=== PATIENT | male | born 1945 | race Caucasian/White ===

== ENCOUNTER → 2018-08-24 | Outpatient (CLI) | payer OTHER ==
[~2018-08-24] MED LIST: ASPI-1197 PO; CLOP75TA14 PO; FURO20TA6 PO; METO-391 PO; SIMV20TA6 PO
== END | disposition home or self-care (01) ==
LOC: SHCH 08:21
PROVIDERS: ATTEND Internal Medicine Cardiovascular Disease
DX: I51.89 Other ill-defined heart diseases (principal); I51.7 Cardiomegaly
CPT/HCPCS: 93306

== ENCOUNTER → 2018-12-14 | Outpatient (CLI) | payer OTHER ==
[~2018-12-14] MED LIST changes: +GLIP5TAB11 PO; +METF-444 PO; +SPIR25TA PO
== END | disposition home or self-care (01) ==
LOC: SHCH 07:53
PROVIDERS: ATTEND Internal Medicine Cardiovascular Disease
DX: I35.8 Other nonrheumatic aortic valve disorders (principal); I11.9 Hypertensive heart disease without heart failure; I25.5 Ischemic cardiomyopathy
CPT/HCPCS: 93306

== ENCOUNTER → 2018-12-21 | Outpatient (CLI) | payer OTHER ==
[~2018-12-21] MED LIST changes: +ALBUTEROL SULFATE 0.083% 2.5 MG/3 ML INH IH ONE
== END | disposition home or self-care (01) ==
LOC: RESP 10:28
PROVIDERS: ATTEND Internal Medicine Cardiovascular Disease
DX: R06.02 Shortness of breath (principal)
CPT/HCPCS: 94060; 94727; 94729

== ENCOUNTER → 2019-09-03 | Outpatient (CLI) | payer OTHER ==
[~2019-09-03] MED LIST changes: -ALBUTEROL SULFATE 0.083% 2.5 MG/3 ML INH IH ONE; +SIMV-43 PO; -SIMV20TA6 PO
== END | disposition home or self-care (01) ==
LOC: SHCH 07:43
PROVIDERS: ATTEND Internal Medicine Cardiovascular Disease
DX: I25.10 Atherosclerotic heart disease of native coronary artery without angina pectoris (principal); I11.9 Hypertensive heart disease without heart failure
CPT/HCPCS: 93306

== ENCOUNTER 2019-10-03 10:20 | Observation (INO) | payer OTHER ==
[2019-10-02 08:59] LABS: BASOPHILS % (AUTO) 0.5 % (0.0-5.0); EOSINOPHILS % (AUTO) 4.4 % (0.0-8.0); HEMATOCRIT 48.7 % (42-54); LYMPHOCYTES % (AUTO) 8.8 % (21.0-51.0); MEAN CORPUSCULAR HEMOGLOBIN 31.5 pg (27.0-33.0); MEAN CORPUSCULAR HGB CONC 33.7 g/dL (32.0-36.0); MEAN CORPUSCULAR VOLUME 93.6 fL (79-99); MONOCYTES % (AUTO) 8.3 % (3.0-13.0); PLATELET COUNT (AUTO) 179 K/uL (130-400); RED BLOOD CELL COUNT(AUTO) 5.21 MIL/uL (4.50-6.20); RED CELL DISTRIBUTION WIDTH 13.3 % (11.0-15.5)
[2019-10-02 09:05] VITALS: BP 91/55
[2019-10-02 09:14] LABS: INR 0.99 (0.85-1.15); PARTIAL THROMBOPLASTIN TIME 26.6 SEC (26.3-35.5); PROTHROMBIN TIME 10.4 SEC (9.6-11.6)
[2019-10-02 09:15] LABS: CREATININE 1.6 mg/dL (0.5-1.5); POTASSIUM 4.9 mmol/L (3.5-5.1)
--- NOTE | 2019-10-02 14:15 | NUR ---
RE: ABNORMAL LABS REPORTED ABNORMAL LABS BUN 38, CREAT 1.6 AND WBC 11.0 TO ANDREA BECKHAM. NO NEW ORDERS RECEIVED.
[2019-10-03] VITALS (10 sets, daily range): BP systolic 99–154; BP diastolic 52–62
[~2019-10-03] VITALS: Ht 175.3 cm; Wt 100.4 kg
[~2019-10-03 10:20] MED LIST changes: +CEFAZOLIN SODIUM 1 GM VIAL IVP SCH; -CLOP75TA14 PO; +CLOP75TA32 PO; +LOSA25TA41 PO
[2019-10-03] MEDS ORDERED: SODIUM CHLORIDE 0.9% 1000ML 1,000 ML IV ONE (12:17)
[2019-10-03] MEDS ORDERED: LIDOCAINE HCL 1% MDV 50ML VIAL ONE (13:44)
[2019-10-03] MEDS ORDERED: MIDAZOLAM HCL 1 MG/ML 2ML VIAL ONE ×3 (13:44→14:54)
[2019-10-03] MEDS ORDERED: CEFAZOLIN SODIUM 1 GM VIAL ONE (13:44)
[2019-10-03] MEDS ORDERED: MEPERIDINE-PF 25 MG/ML SYG ONE ×3 (13:44→14:54)
[2019-10-03] MEDS ORDERED: BUPIVACAINE/PF 0.25% 30ML VIAL IJ ONE (13:44)
[2019-10-03] MEDS ORDERED: IOHEXOL-350 50ML VIAL IV ONE (14:36)
[2019-10-03] MEDS ORDERED: OCTYL 2-CYANOACRYLATE 1 EACH TP ONE (15:05)
[2019-10-03] MEDS ORDERED: DEXTROSE 50%-WATER 50 ML DISP.SYRIN IV PRN (15:45)
[2019-10-03] MEDS ORDERED: ACETAMINOPHEN-CODEINE 300/30MG TAB PO PRN ×2 (15:45)
[2019-10-03] MEDS ORDERED: ONDANSETRON HCL 4 MG/2 ML VIAL IV PRN (15:45)
[2019-10-03] MEDS: INSULIN HUMULIN R 100 UNIT/ML 3ML SQ SCH ×2 (16:30→21:00)
[2019-10-03] MEDS: METFORMIN HCL 500 MG TABLET PO SCH (16:49)
[2019-10-03] MEDS ORDERED: GLIPIZIDE 5 MG TABLET PO SCH (21:00)
[2019-10-03] MEDS ORDERED: ALPRAZOLAM 0.5 MG TABLET PO ONE (21:00)
[2019-10-03] MEDS: LOSARTAN POTASSIUM 12.5 MG PO SCH (21:00)
[2019-10-03] MEDS: METOPROLOL TARTRATE 25 MG TAB PO SCH (21:22)
[2019-10-03] MEDS: SPIRONOLACTONE 25 MG TAB PO SCH (21:22)
[2019-10-04 00:08] VITALS: BP 125/64
[2019-10-04 04:17] VITALS: BP_SYST 123; BP_SYST 70; BP_DIAS 70
[2019-10-04 04:57] LABS: MEAN CORPUSCULAR HEMOGLOBIN 31.8 pg (27.0-33.0); MEAN CORPUSCULAR HGB CONC 34.2 g/dL (32.0-36.0); PLATELET COUNT (AUTO) 184 K/uL (130-400); RED BLOOD CELL COUNT(AUTO) 4.84 MIL/uL (4.50-6.20); RED CELL DISTRIBUTION WIDTH 13.5 % (11.0-15.5); WHITE BLOOD COUNT (AUTO) 12.2 K/uL (4.8-10.8)
[2019-10-04 05:11] LABS: CREATININE 1.5 mg/dL (0.5-1.5); POTASSIUM 4.1 mmol/L (3.5-5.1)
[2019-10-04] MEDS: CEFAZOLIN SODIUM 1 GM VIAL IVP SCH ×2 (05:35→14:20)
[2019-10-04] MEDS: INSULIN HUMULIN R 100 UNIT/ML 3ML SQ SCH ×2 (06:27→11:24)
[2019-10-04 07:42] VITALS: BP 120/66
[2019-10-04] MEDS: METFORMIN HCL 500 MG TABLET PO SCH (08:18)
[2019-10-04] MEDS: SPIRONOLACTONE 25 MG TAB PO SCH (08:18)
[2019-10-04] MEDS: METOPROLOL TARTRATE 25 MG TAB PO SCH (08:18)
[2019-10-04] MEDS ORDERED: ASPIRIN 81MG TAB.CHEW PO SCH (09:00)
[2019-10-04] MEDS ORDERED: FUROSEMIDE 20 MG TABLET PO SCH (09:00)
[2019-10-04 11:39] VITALS: BP 106/72
--- NOTE | 2019-10-04 12:39 | NUR ---
1003 had pt sign ALEXANDER Letter. Faxed to [phone] and placed in chart under consent tab
--- NOTE | 2019-10-04 14:40 | NUR ---
HL REMOVED, CATHETER INTACT. DISCHARGE INSTRUCTIONS WELL LEFT ARM RESTRICTIONS/PRECAUTIONS GIVEN TO PT. AND PT.'S SPOUSE AT BEDSIDE, VERBALIZED MUTUAL UNDERSTANDING.
--- NOTE | 2019-10-04 14:50 | NUR ---
DISCHARGED HOME VIA W/C WITH BELONGINGS AND ARM SLING IN PLACE; ACCOMPANIED BY KRYSTEN GARNICA.
[2019-10-05] MEDS ORDERED: SIMVASTATIN 20 MG TABLET PO SCH (09:00)
[2019-10-05] MEDS ORDERED: CLOPIDOGREL BISULFATE 75 MG TAB PO SCH (09:00)
== END 2019-10-04 14:50 | disposition home or self-care (01) ==
LOC: DAH 10:20 → DAHIP 10:21 → DAH 10:21 → 2AH 16:12
PROVIDERS: ADMIT Internal Medicine Pulmonary Disease; ATTEND Internal Medicine Pulmonary Disease
DX: I42.8 Other cardiomyopathies (principal); I49.5 Sick sinus syndrome; I50.9 Heart failure, unspecified; E78.5 Hyperlipidemia, unspecified; J44.9 Chronic obstructive pulmonary disease, unspecified; E11.22 Type 2 diabetes mellitus with diabetic chronic kidney disease; N18.9 Chronic kidney disease, unspecified; E66.9 Obesity, unspecified; Z90.89 Acquired absence of other organs; Z95.5 Presence of coronary angioplasty implant and graft; Z95.810 Presence of automatic (implantable) cardiac defibrillator; Z79.82 Long term (current) use of aspirin; Z79.84 Long term (current) use of oral hypoglycemic drugs; Z79.02 Long term (current) use of antithrombotics/antiplatelets; Z79.899 Other long term (current) drug therapy; Z68.32 Body mass index [BMI] 32.0-32.9, adult
CPT/HCPCS: 33249; 36415 ×2; 71046; 80048 ×2; 82948 ×4; 85025; 85027; 85610; 85730; 93005; 96374; 96376; A4215; A4216; A4221; A4222; A4223 ×3; A4606; A4663; C1721; C1894; C1895 ×2; G0378 ×23; J0690 ×3; J2175 ×3; J2250 ×3; J3490 ×2; J7030; Q9967; 99156; 99157

== ENCOUNTER 2022-09-29 10:52 | Emergency (ER) | payer OTHER ==
[~2022-09-29] VITALS: Ht 177.8 cm; Wt 100.2 kg
[~2022-09-29 10:52] MED LIST changes: -CEFAZOLIN SODIUM 1 GM VIAL IVP SCH
[2022-09-29 12:39] LABS: BASOPHILS % (AUTO) 0.3 % (0.0-5.0); EOSINOPHILS % (AUTO) 0.6 % (0.0-8.0); HEMATOCRIT 48.9 % (42-54); LYMPHOCYTES % (AUTO) 10.1 % (21.0-51.0); MEAN CORPUSCULAR HEMOGLOBIN 31.4 pg (27.0-33.0); MEAN CORPUSCULAR HGB CONC 33.9 g/dL (32.0-36.0); MEAN CORPUSCULAR VOLUME 92.6 fL (79-99); NEUTROPHILS % (AUTO) 69.4 % (40.0-77.0); PLATELET COUNT (AUTO) 139 K/uL (130-400); RED BLOOD CELL COUNT(AUTO) 5.28 MIL/uL (4.50-6.20); RED CELL DISTRIBUTION WIDTH 13.9 % (11.0-15.5); WHITE BLOOD COUNT (AUTO) 7.7 K/uL (4.8-10.8)
[2022-09-29 13:01] LABS: B-TYPE NATRIURETIC PEPTIDE 63 pg/mL (0-100)
[2022-09-29 13:08] LABS: ALBUMIN 3.6 g/dL (3.5-5.0); CREATININE 1.8 mg/dL (0.5-1.5); POTASSIUM 3.9 mmol/L (3.5-5.1)
[2022-09-29 13:22] LABS: TOTAL PROTEIN, SERUM 7.1 g/dL (6.0-8.3)
[2022-09-29] MEDS ORDERED: 0.9%NACL 1000ML 1,000 ML IV ONE (14:00)
[2022-09-29] MEDS ORDERED: DEXTROSE 50%-WATER 50 ML DISP.SYRIN IV ONE (14:05)
[2022-09-29 15:11] VITALS: BP 136/78
== END 2022-09-29 15:06 | disposition home or self-care (01) ==
LOC: EDH 10:52
DX: E11.22 Type 2 diabetes mellitus with diabetic chronic kidney disease (principal); N18.30 Chronic kidney disease, stage 3 unspecified; I50.42 Chronic combined systolic (congestive) and diastolic (congestive) heart failure; J44.9 Chronic obstructive pulmonary disease, unspecified; I50.9 Heart failure, unspecified; Z79.82 Long term (current) use of aspirin; Z79.84 Long term (current) use of oral hypoglycemic drugs; Z95.5 Presence of coronary angioplasty implant and graft; Z95.810 Presence of automatic (implantable) cardiac defibrillator; Z79.899 Other long term (current) drug therapy
CPT/HCPCS: 99285; 96374; 71045; 84484; 80053; 83880; 85025; 82948 ×2; 36415; 93005; J7030; J7070

== ENCOUNTER → 2022-10-13 | Outpatient (CLI) | payer OTHER | END | disposition home or self-care (01) | LOC: SHCH 10:43 | PROVIDERS: ATTEND Internal Medicine Cardiovascular Disease | DX: I08.0 Rheumatic disorders of both mitral and aortic valves (principal); I25.10 Atherosclerotic heart disease of native coronary artery without angina pectoris; E11.9 Type 2 diabetes mellitus without complications; Z95.0 Presence of cardiac pacemaker | CPT/HCPCS: 93306 ==

== ENCOUNTER → 2022-10-14 | Outpatient (CLI) | payer OTHER ==
[2022-10-14 12:30] LABS: BASOPHILS % (AUTO) 0.6 % (0.0-5.0); EOSINOPHILS % (AUTO) 4.1 % (0.0-8.0); HEMATOCRIT 51.6 % (42-54); LYMPHOCYTES % (AUTO) 11.9 % (21.0-51.0); MEAN CORPUSCULAR HEMOGLOBIN 31.1 pg (27.0-33.0); MEAN CORPUSCULAR HGB CONC 33.5 g/dL (32.0-36.0); MEAN CORPUSCULAR VOLUME 92.8 fL (79-99); MONOCYTES % (AUTO) 9.6 % (3.0-13.0); NEUTROPHILS % (AUTO) 72.9 % (40.0-77.0); PLATELET COUNT (AUTO) 248 K/uL (130-400); RED BLOOD CELL COUNT(AUTO) 5.56 MIL/uL (4.50-6.20); RED CELL DISTRIBUTION WIDTH 13.2 % (11.0-15.5); WHITE BLOOD COUNT (AUTO) 12.1 K/uL (4.8-10.8)
[2022-10-14 12:39] LABS: HEMOGLOBIN A1C 7.5 % (4.0-6.0)
[2022-10-14 12:52] LABS: ALBUMIN 3.7 g/dL (3.5-5.0); CREATININE 1.7 mg/dL (0.5-1.5); POTASSIUM 4.8 mmol/L (3.5-5.1); T4 (THYROXINE) 6.3 ug/dL (4.7-13.3); THYROID STIMULATING HORMONE 2.43 uIU/mL (0.36-3.74); TOTAL PROTEIN, SERUM 7.3 g/dL (6.0-8.3)
[2022-10-14 13:26] LABS: B-TYPE NATRIURETIC PEPTIDE 114 pg/mL (0-100)
== END | disposition home or self-care (01) ==
LOC: LAB 10:00
PROVIDERS: ATTEND Internal Medicine Cardiovascular Disease
DX: I25.5 Ischemic cardiomyopathy (principal); I10 Essential (primary) hypertension; Z79.899 Other long term (current) drug therapy
CPT/HCPCS: 36415; 80053; 80061; 83036; 83880; 84436; 84443; 84479; 85025

== ENCOUNTER 2023-01-20 11:41 | Inpatient (IN) | payer OTHER ==
[~2023-01-20] VITALS: Ht 157.5 cm; Wt 103.4 kg
[2023-01-20] MEDS ORDERED: FAMOTIDINE 20MG VIAL IV ONE (12:00)
[2023-01-20] MEDS ORDERED: 0.9%NACL 1000ML 1,000 ML IV ONE (12:00)
[2023-01-20 12:38] LABS: BASOPHILS % (AUTO) 0.2 % (0.0-5.0); LYMPHOCYTES % (AUTO) 2.1 % (21.0-51.0); MEAN CORPUSCULAR HGB CONC 33.5 g/dL (32.0-36.0); MEAN CORPUSCULAR VOLUME 92.6 fL (79-99); MONOCYTES % (AUTO) 6.2 % (3.0-13.0); NEUTROPHILS % (AUTO) 90.5 % (40.0-77.0); PLATELET COUNT (AUTO) 215 K/uL (130-400); RED BLOOD CELL COUNT(AUTO) 5.83 MIL/uL (4.50-6.20); RED CELL DISTRIBUTION WIDTH 13.2 % (11.0-15.5); WHITE BLOOD COUNT (AUTO) 20.9 K/uL (4.8-10.8)
[2023-01-20 13:23] LABS: ALBUMIN 3.7 g/dL (3.5-5.0); CREATININE 2.5 mg/dL (0.5-1.5); POTASSIUM 5.3 mmol/L (3.5-5.1)
[2023-01-20 13:25] LABS: TOTAL PROTEIN, SERUM 6.9 g/dL (6.0-8.3)
[2023-01-20] MEDS ORDERED: ZOSYN 3.375GM+NS 50ML 50 ML IVPB SCH (13:30)
[2023-01-20 13:40] LABS: INR 0.98 (0.85-1.15); PROTHROMBIN TIME 10.7 SEC (9.6-11.6)
[2023-01-20 13:41] LABS: PARTIAL THROMBOPLASTIN TIME 27.2 SEC (26.3-35.5)
[2023-01-20] MEDS ORDERED: INSULIN HUMULIN R 100 UNIT/ML 3ML IV ONE (14:00)
[2023-01-20 14:17] LABS: ABG BASE EXCESS -6.7 mmol/L (-2.0-3.0); ABG HCO3 19.5 mmol/L (21.0-28.0); ABG OXYGEN SATURATION 91.4 % (95.0-99.0); ABG PCO2 41 mmHg (35-48)
[2023-01-20] MEDS ORDERED: ONDANSETRON 4MG INJ IV PRN (14:30)
[2023-01-20] MEDS ORDERED: VANCOMYCIN PROTOCOL PER PHARMACY IV PRN (14:30)
[2023-01-20] MEDS ORDERED: LIDOCAINE HCL-MPF 1% 2ML VIAL IV PRN (14:30)
[2023-01-20] MEDS ORDERED: POTASSIUM CHLORIDE 20MEQ/100ML 100 ML IV PRN (14:30)
[2023-01-20] MEDS ORDERED: GLUCAGON 1MG KIT 1 MG ML IM PRN (14:30)
[2023-01-20] MEDS ORDERED: ACETAMINOPHEN 325 MG TAB PO PRN ×2 (14:30)
[2023-01-20] MEDS ORDERED: POTASSIUM CHLORIDE 10% ELIXIR 20 MEQ/15 ML UDCUP PO PRN (14:30)
[2023-01-20] MEDS ORDERED: DEXTROSE 50%-WATER 50 ML DISP.SYRIN IV PRN (14:30)
[2023-01-20] MEDS ORDERED: LACTULOSE 20 GM/30 ML UDCUP PO PRN (14:30)
[2023-01-20] MEDS ORDERED: MAG/ALUM/SIMETH 30 ML UDCUP PO PRN (14:30)
[2023-01-20] MEDS ORDERED: HYDROMORPHONE 1 MG INJ IV PRN (14:30)
[2023-01-20] MEDS ORDERED: MAGNESIUM 2GM PREMIX 50ML 50 ML IV PRN (14:30)
[2023-01-20] MEDS ORDERED: GUAIFENESIN-DM 200/20 MG 10 ML PO PRN (14:30)
[2023-01-20] MEDS ORDERED: DIPHENHYDRAMINE HCL 25 MG CAPSULE PO PRN (14:30)
[2023-01-20] MEDS ORDERED: NITROGLYCERIN 0.4 MG SL TAB SL PRN (14:30)
[2023-01-20] MEDS ORDERED: HYDROCODONE/ACETAMINOPHEN 5/325 MG TAB PO PRN ×2 (14:30)
[2023-01-20] MEDS: 0.9%NACL 1000ML 1,000 ML IV SCH ×2 (14:45→23:48)
[2023-01-20] MEDS: CEFEPIME HCL 2 GM VIAL IVP SCH ×2 (15:18→23:47)
[2023-01-20] MEDS: INSULIN HUMULIN R 100 UNIT/ML 3ML SQ SCH ×2 (17:46→21:00)
[2023-01-20] MEDS: MIDODRINE HCL 5 MG TABLET PO SCH (21:00)
[2023-01-20] MEDS: FAMOTIDINE 20MG TAB PO SCH (21:00)
[2023-01-20] MEDS: HEPARIN 5,000 UNIT VIAL SQ SCH (23:46)
[2023-01-20] MEDS: FAMOTIDINE 20MG VIAL IV SCH (23:47)
[2023-01-20] MEDS: INSULIN GLARGINE 100 UNITS/ML 10 ML VIAL SQ SCH (23:49)
[2023-01-21] MEDS: CEFEPIME HCL 2 GM VIAL IVP SCH ×3 (06:05→22:56)
[2023-01-21] MEDS: 0.9%NACL 1000ML 1,000 ML IV SCH ×3 (06:05→23:04)
[2023-01-21] MEDS: INSULIN GLARGINE 100 UNITS/ML 10 ML VIAL SQ SCH ×2 (07:30→20:16)
[2023-01-21] MEDS: INSULIN HUMULIN R 100 UNIT/ML 3ML SQ SCH ×3 (07:30→20:12)
[2023-01-21 07:37] LABS: BASOPHILS % (AUTO) 0.3 % (0.0-5.0); EOSINOPHILS % (AUTO) 0.4 % (0.0-8.0); HEMATOCRIT 48.4 % (42-54); LYMPHOCYTES % (AUTO) 8.8 % (21.0-51.0); MEAN CORPUSCULAR HEMOGLOBIN 30.8 pg (27.0-33.0); MEAN CORPUSCULAR HGB CONC 32.9 g/dL (32.0-36.0); MEAN CORPUSCULAR VOLUME 93.8 fL (79-99); MONOCYTES % (AUTO) 8.2 % (3.0-13.0); NEUTROPHILS % (AUTO) 81.7 % (40.0-77.0); PLATELET COUNT (AUTO) 165 K/uL (130-400); RED BLOOD CELL COUNT(AUTO) 5.16 MIL/uL (4.50-6.20); RED CELL DISTRIBUTION WIDTH 13.3 % (11.0-15.5); WHITE BLOOD COUNT (AUTO) 15.7 K/uL (4.8-10.8)
[2023-01-21 07:50] LABS: PROTHROMBIN TIME 10.9 SEC (9.6-11.6)
[2023-01-21 07:51] LABS: PARTIAL THROMBOPLASTIN TIME 29.6 SEC (26.3-35.5)
[2023-01-21 07:52] LABS: % IRON SATURATION 13.7 % (30-44)
[2023-01-21 08:00] LABS: ALBUMIN 3.2 g/dL (3.5-5.0); POTASSIUM 3.8 mmol/L (3.5-5.1); THYROID STIMULATING HORMONE 1.07 uIU/mL (0.36-3.74); TOTAL PROTEIN, SERUM 6.1 g/dL (6.0-8.3)
[2023-01-21] MEDS: FAMOTIDINE 20MG VIAL IV SCH (08:53)
[2023-01-21] MEDS: MIDODRINE HCL 5 MG TABLET PO SCH ×3 (09:00→20:18)
[2023-01-21] MEDS: HEPARIN 5,000 UNIT VIAL SQ SCH ×3 (10:07→20:15)
[2023-01-21] MEDS ORDERED: HALOPERIDOL INJ 5 MG/ML VIAL IV PRN (11:00)
[2023-01-21 11:55] LABS: APPEARANCE,URINE CLEAR (CLEAR); BILIRUBIN,URINE NEGATIVE (NEGATIVE); COLOR,URINE YELLOW (YELLOW); GLUCOSE, URINE (UA) TRACE mg/dL (NEGATIVE); KETONES,URINE 5 mg/dL (NEGATIVE); LEUKOCYTE ESTERASE ,URINE NEGATIVE Leu/uL (NEGATIVE); NITRATE,URINE NEGATIVE (NEGATIVE); OCCULT BLOOD,URINE NEGATIVE (NEGATIVE); PH,URINE 5.5 (5.0-8.0); PROTEIN,URINE 30 mg/dL (NEGATIVE); UROBILINOGEN,URINE 0.2 mg/dL (0.2-1.0)
[2023-01-21 11:59] LABS: AMPHET/METH SCREEN,URINE NEGATIVE (NEGATIVE); BARBITURATE SCREEN, URINE NEGATIVE (NEGATIVE); BENZODIAZEPINES SCREEN,URINE NEGATIVE (NEGATIVE); CANNABINOID SCREEN,URINE NEGATIVE (NEGATIVE); COCAINE SCREEN,URINE NEGATIVE (NEGATIVE); OPIATE SCREEN,URINE NEGATIVE (NEGATIVE); PHENCYCLIDINE SCREEN,URINE NEGATIVE (NEGATIVE)
[2023-01-21 12:10] LABS: MUCUS,URINE RARE LPF (None Seen); RBC,URINE 0-1 /HPF (0-1); SQUAMOUS EPITHELIAL CELL,UR RARE /HPF (0-2)
[2023-01-21] MEDS: HALOPERIDOL INJ 5 MG/ML VIAL IV PRN ×2 (14:04→20:18)
[2023-01-21] MEDS: FAMOTIDINE 20MG TAB PO SCH ×2 (18:29→20:18)
[2023-01-21 19:00] VITALS: BP 128/68
[2023-01-21] MEDS ORDERED: METO-408 PO (19:58)
[2023-01-21] MEDS: DiphenhydrAMINE HCL 50 MG/ML VIAL IV PRN (20:17)
[2023-01-21] MEDS ORDERED: IRON SUCROSE COMPLEX 300 MG in 0.9% NACL 250ML 250 ML IV SCH (21:00)
[2023-01-21] MEDS: METRONIDAZOLE 500MG/100ML BAG 100 ML IVPB SCH (22:55)
[2023-01-22 00:04] VITALS: BP 144/98
[2023-01-22 04:13] VITALS: BP 131/76
[2023-01-22] MEDS: MIDODRINE HCL 5 MG TABLET PO SCH ×3 (05:00→21:00)
[2023-01-22] MEDS: CEFEPIME HCL 2 GM VIAL IVP SCH ×3 (05:14→22:31)
[2023-01-22] MEDS: METRONIDAZOLE 500MG/100ML BAG 100 ML IVPB SCH ×3 (05:14→21:27)
[2023-01-22] MEDS: INSULIN GLARGINE 100 UNITS/ML 10 ML VIAL SQ SCH ×2 (05:36→21:00)
[2023-01-22] MEDS: INSULIN HUMULIN R 100 UNIT/ML 3ML SQ SCH ×4 (05:36→21:00)
[2023-01-22 05:58] LABS: BASOPHILS % (AUTO) 0.5 % (0.0-5.0); EOSINOPHILS % (AUTO) 0.9 % (0.0-8.0); HEMATOCRIT 46.2 % (42-54); LYMPHOCYTES % (AUTO) 8.8 % (21.0-51.0); MEAN CORPUSCULAR HEMOGLOBIN 31.1 pg (27.0-33.0); MEAN CORPUSCULAR HGB CONC 33.1 g/dL (32.0-36.0); MEAN CORPUSCULAR VOLUME 93.9 fL (79-99); MONOCYTES % (AUTO) 10.7 % (3.0-13.0); NEUTROPHILS % (AUTO) 78.3 % (40.0-77.0); PLATELET COUNT (AUTO) 148 K/uL (130-400); RED BLOOD CELL COUNT(AUTO) 4.92 MIL/uL (4.50-6.20); RED CELL DISTRIBUTION WIDTH 13.3 % (11.0-15.5); WHITE BLOOD COUNT (AUTO) 11.5 K/uL (4.8-10.8)
[2023-01-22 06:13] LABS: CREATININE 1.4 mg/dL (0.5-1.5); POTASSIUM 4.4 mmol/L (3.5-5.1); TOTAL PROTEIN, SERUM 5.9 g/dL (6.0-8.3)
[2023-01-22 08:00] VITALS: BP 178/63
[2023-01-22] MEDS: HEPARIN 5,000 UNIT VIAL SQ SCH ×3 (09:40→21:27)
[2023-01-22] MEDS: SIMVASTATIN 20 MG TABLET PO SCH (09:43)
[2023-01-22] MEDS: FAMOTIDINE 20MG TAB PO SCH ×2 (09:43→21:28)
[2023-01-22 10:31] LABS: HEMOGLOBIN A1C 8.3 % (4.0-6.0)
[2023-01-22] MEDS: 0.9%NACL 1000ML 1,000 ML IV SCH (13:13)
[2023-01-22] MEDS ORDERED: METO-408 PO (15:18)
[2023-01-22] MEDS ORDERED: GUAI400T94 PO (15:18)
[2023-01-22] MEDS ORDERED: CLOP75TA32 PO (15:18)
[2023-01-22] MEDS ORDERED: FURO20TA4 PO (15:18)
[2023-01-22] MEDS ORDERED: CHOL2000 PO (15:18)
[2023-01-22] MEDS ORDERED: AEC81 PO (15:18)
[2023-01-22] MEDS ORDERED: MIDO10TA PO (15:18)
[2023-01-22] MEDS ORDERED: GLIP2.5T2 PO (15:18)
[2023-01-22 16:00] VITALS: BP 138/73
[2023-01-22 20:17] VITALS: BP 145/67
[2023-01-23 00:29] VITALS: BP 138/89
[2023-01-23 03:54] VITALS: BP 136/72
[2023-01-23] MEDS: MIDODRINE HCL 5 MG TABLET PO SCH (04:25)
[2023-01-23] MEDS: METRONIDAZOLE 500MG/100ML BAG 100 ML IVPB SCH ×3 (05:04→21:31)
[2023-01-23] MEDS: INSULIN HUMULIN R 100 UNIT/ML 3ML SQ SCH ×4 (06:07→21:00)
[2023-01-23] MEDS: CEFEPIME HCL 2 GM VIAL IVP SCH ×3 (06:12→22:26)
[2023-01-23] MEDS: INSULIN GLARGINE 100 UNITS/ML 10 ML VIAL SQ SCH ×2 (06:13→21:31)
[2023-01-23 06:19] LABS: BASOPHILS % (AUTO) 0.4 % (0.0-5.0); EOSINOPHILS % (AUTO) 2.3 % (0.0-8.0); HEMATOCRIT 44.6 % (42-54); LYMPHOCYTES % (AUTO) 9.9 % (21.0-51.0); MEAN CORPUSCULAR HGB CONC 33.2 g/dL (32.0-36.0); MEAN CORPUSCULAR VOLUME 93.3 fL (79-99); MONOCYTES % (AUTO) 10.8 % (3.0-13.0); PLATELET COUNT (AUTO) 119 K/uL (130-400); RED BLOOD CELL COUNT(AUTO) 4.78 MIL/uL (4.50-6.20); WHITE BLOOD COUNT (AUTO) 10.2 K/uL (4.8-10.8)
[2023-01-23 06:35] LABS: CREATININE 1.3 mg/dL (0.5-1.5); POTASSIUM 3.8 mmol/L (3.5-5.1); TOTAL PROTEIN, SERUM 5.8 g/dL (6.0-8.3)
[2023-01-23] MEDS ORDERED: METOCLOPRAMIDE 10 MG/2 ML VIAL IVP SCH (07:30)
[2023-01-23 08:00] VITALS: BP 138/83
[2023-01-23] MEDS: METOPROLOL SUCCINATE 25 MG TAB.SR.24H PO SCH (10:20)
[2023-01-23] MEDS: ASPIRIN 81 MG EC TAB PO SCH (10:20)
[2023-01-23] MEDS: FAMOTIDINE 20MG TAB PO SCH ×2 (10:20→21:30)
[2023-01-23] MEDS: CLOPIDOGREL 75MG TAB PO SCH (10:21)
[2023-01-23] MEDS: FUROSEMIDE 20 MG TABLET PO SCH (10:22)
[2023-01-23 11:54] VITALS: BP 139/86
[2023-01-23 15:47] VITALS: BP 146/78
[2023-01-23] MEDS: KCL 20 MEQ ERTAB PO PRN ×2 (17:10→19:48)
[2023-01-23 20:23] VITALS: BP 142/78
[2023-01-24] VITALS: BP 145/73
[2023-01-24] MEDS: HALOPERIDOL INJ 5 MG/ML VIAL IV PRN (04:47)
[2023-01-24 04:56] VITALS: BP 138/69
[2023-01-24] MEDS: METRONIDAZOLE 500MG/100ML BAG 100 ML IVPB SCH ×3 (05:15→20:49)
[2023-01-24] MEDS: CEFEPIME HCL 2 GM VIAL IVP SCH ×3 (06:08→20:49)
[2023-01-24] MEDS: INSULIN HUMULIN R 100 UNIT/ML 3ML SQ SCH ×4 (06:35→20:50)
[2023-01-24] MEDS: INSULIN GLARGINE 100 UNITS/ML 10 ML VIAL SQ SCH ×2 (06:35→20:50)
[2023-01-24 08:00] VITALS: BP 139/71
[2023-01-24] MEDS: HOME MEDICATION 1 EACH PO SCH (09:00)
[2023-01-24] MEDS: ASPIRIN 81 MG EC TAB PO SCH (11:01)
[2023-01-24] MEDS: TAMSULOSIN HCL 0.4 MG CAP.ER.24H PO SCH (11:01)
[2023-01-24] MEDS: FAMOTIDINE 20MG TAB PO SCH ×2 (11:01→20:51)
[2023-01-24] MEDS: CLOPIDOGREL 75MG TAB PO SCH (11:02)
[2023-01-24] MEDS: FUROSEMIDE 20 MG TABLET PO SCH (11:04)
[2023-01-24] MEDS: SIMVASTATIN 20 MG TABLET PO SCH (11:05)
[2023-01-24 12:00] VITALS: BP 147/77
[2023-01-24] MEDS: METOPROLOL SUCCINATE 25 MG TAB.SR.24H PO SCH (12:48)
[2023-01-24] MEDS ORDERED: AMLODIPINE 5 MG TAB PO ONE (14:00)
[2023-01-24 16:00] VITALS: BP 126/74
[2023-01-24 20:10] VITALS: BP 130/74
[2023-01-24] MEDS: TRAZODONE HCL 50 MG TAB PO SCH (20:51)
[2023-01-25] VITALS (7 sets, daily range): BP systolic 118–170; BP diastolic 54–76
[2023-01-25] MEDS: CEFEPIME HCL 2 GM VIAL IVP SCH ×3 (04:43→22:21)
[2023-01-25 05:11] LABS: BASOPHILS % (AUTO) 0.5 % (0.0-5.0); EOSINOPHILS % (AUTO) 4.5 % (0.0-8.0); HEMATOCRIT 45.9 % (42-54); LYMPHOCYTES % (AUTO) 11.7 % (21.0-51.0); MEAN CORPUSCULAR HEMOGLOBIN 31.1 pg (27.0-33.0); MEAN CORPUSCULAR HGB CONC 33.6 g/dL (32.0-36.0); MEAN CORPUSCULAR VOLUME 92.7 fL (79-99); MONOCYTES % (AUTO) 11.6 % (3.0-13.0); NEUTROPHILS % (AUTO) 70.7 % (40.0-77.0); PLATELET COUNT (AUTO) 157 K/uL (130-400); RED BLOOD CELL COUNT(AUTO) 4.95 MIL/uL (4.50-6.20); RED CELL DISTRIBUTION WIDTH 12.9 % (11.0-15.5); WHITE BLOOD COUNT (AUTO) 8.3 K/uL (4.8-10.8)
[2023-01-25] MEDS: INSULIN HUMULIN R 100 UNIT/ML 3ML SQ SCH ×4 (05:12→20:30)
[2023-01-25 05:21] LABS: ALBUMIN 3.2 g/dL (3.5-5.0); CREATININE 1.5 mg/dL (0.5-1.5); POTASSIUM 3.9 mmol/L (3.5-5.1); TOTAL PROTEIN, SERUM 6.1 g/dL (6.0-8.3)
[2023-01-25] MEDS: METRONIDAZOLE 500MG/100ML BAG 100 ML IVPB SCH ×3 (05:37→21:22)
[2023-01-25] MEDS: INSULIN GLARGINE 100 UNITS/ML 10 ML VIAL SQ SCH ×2 (05:38→20:39)
[2023-01-25] MEDS: HOME MEDICATION 1 EACH PO SCH (09:00)
[2023-01-25] MEDS: FUROSEMIDE 20 MG TABLET PO SCH (10:39)
[2023-01-25] MEDS: FAMOTIDINE 20MG TAB PO SCH ×2 (10:40→20:41)
[2023-01-25] MEDS: AMLODIPINE 5 MG TAB PO SCH (10:40)
[2023-01-25] MEDS: METOPROLOL SUCCINATE 25 MG TAB.SR.24H PO SCH (10:40)
[2023-01-25] MEDS: TAMSULOSIN HCL 0.4 MG CAP.ER.24H PO SCH (10:40)
[2023-01-25] MEDS: ASPIRIN 81 MG EC TAB PO SCH (10:40)
[2023-01-25] MEDS: CLOPIDOGREL 75MG TAB PO SCH (10:41)
[2023-01-25] MEDS: TRAZODONE HCL 50 MG TAB PO SCH (20:41)
[2023-01-25] MEDS: HALOPERIDOL INJ 5 MG/ML VIAL IV PRN (22:28)
[2023-01-25] MEDS ORDERED: TRAZODONE HCL 50 MG TAB PO ONE (23:00)
[2023-01-25] MEDS: DiphenhydrAMINE HCL 50 MG/ML VIAL IV PRN (23:31)
[2023-01-26] MEDS: HALOPERIDOL INJ 5 MG/ML VIAL IV PRN (02:30)
[2023-01-26] MEDS: METRONIDAZOLE 500MG/100ML BAG 100 ML IVPB SCH (04:39)
[2023-01-26] MEDS: CEFEPIME HCL 2 GM VIAL IVP SCH (05:47)
[2023-01-26] MEDS: INSULIN HUMULIN R 100 UNIT/ML 3ML SQ SCH ×2 (05:48→11:30)
[2023-01-26] MEDS: INSULIN GLARGINE 100 UNITS/ML 10 ML VIAL SQ SCH (05:48)
[2023-01-26 06:28] VITALS: BP 111/52
[2023-01-26 08:00] VITALS: BP 110/67
[2023-01-26] MEDS: HOME MEDICATION 1 EACH PO SCH (09:00)
[2023-01-26] MEDS: CLOPIDOGREL 75MG TAB PO SCH (11:26)
[2023-01-26] MEDS: FAMOTIDINE 20MG TAB PO SCH (11:26)
[2023-01-26] MEDS: ASPIRIN 81 MG EC TAB PO SCH (11:26)
[2023-01-26] MEDS: METOPROLOL SUCCINATE 25 MG TAB.SR.24H PO SCH (11:27)
[2023-01-26] MEDS: FUROSEMIDE 20 MG TABLET PO SCH (11:27)
[2023-01-26] MEDS: TAMSULOSIN HCL 0.4 MG CAP.ER.24H PO SCH (11:27)
[2023-01-26] MEDS: AMLODIPINE 5 MG TAB PO SCH (11:27)
[2023-01-26] MEDS: SIMVASTATIN 20 MG TABLET PO SCH (11:27)
[2023-01-26 12:00] VITALS: BP 136/57
== END 2023-01-26 13:25 | DRG 871 ==
LOC: EDH 11:41 → EDHIP 14:01 → 3AH 01-21 19:00
PROVIDERS: ADMIT Internal Medicine; ATTEND Internal Medicine
DX: A41.9 Sepsis, unspecified organism (principal); E11.10 Type 2 diabetes mellitus with ketoacidosis without coma; G93.41 Metabolic encephalopathy; N17.9 Acute kidney failure, unspecified; I13.0 Hypertensive heart and chronic kidney disease with heart failure and stage 1 through stage 4 chronic kidney disease, or unspecified chronic kidney disease; I50.20 Unspecified systolic (congestive) heart failure; Z68.41 Body mass index [BMI] 40.0-44.9, adult; N39.0 Urinary tract infection, site not specified; Z20.822 Contact with and (suspected) exposure to COVID-19; I95.9 Hypotension, unspecified; K52.9 Noninfective gastroenteritis and colitis, unspecified; E11.22 Type 2 diabetes mellitus with diabetic chronic kidney disease; E11.51 Type 2 diabetes mellitus with diabetic peripheral angiopathy without gangrene; E78.5 Hyperlipidemia, unspecified; J44.9 Chronic obstructive pulmonary disease, unspecified; I25.10 Atherosclerotic heart disease of native coronary artery without angina pectoris; R79.89 Other specified abnormal findings of blood chemistry; I25.5 Ischemic cardiomyopathy; E86.0 Dehydration; E03.9 Hypothyroidism, unspecified; D50.9 Iron deficiency anemia, unspecified; E11.65 Type 2 diabetes mellitus with hyperglycemia; G47.00 Insomnia, unspecified; N18.31 Chronic kidney disease, stage 3a; E66.9 Obesity, unspecified; Z95.5 Presence of coronary angioplasty implant and graft; Z90.49 Acquired absence of other specified parts of digestive tract; Z87.891 Personal history of nicotine dependence
CPT/HCPCS: 36415; 36600; 70450; 71045; 71046; 74176; 80053; 80305; 81001; 82010; 82150; 82803; 82948; 83036; 83540; 83550; 83605; 83690; 83735; 83880; 84100; 84443; 84484; 85025; 85610; 85730; 87040; 93005; 93306; 93356; 97039; G0378; J0692; J1170; J1200; J1630; J1644; J1756; J1815; J2543; J2765; J3490; J7030; J7050; J7070; Q0161

== ENCOUNTER → 2023-04-26 | Outpatient (CLI) | payer OTHER ==
[~2023-04-26] MED LIST changes: +AEC81 PO; -ASPI-1197 PO; +CHOL2000 PO; +FURO20TA4 PO; -FURO20TA6 PO; -GLIP5TAB11 PO; +GUAI600T50 PO; -LOSA25TA41 PO; -METF-444 PO; -METO-391 PO; +MIDO5TAB4 PO; -SPIR25TA PO
== END | disposition home or self-care (01) ==
LOC: WHH 10:05
PROVIDERS: ATTEND Nurse Practitioner Family
DX: L89.610 Pressure ulcer of right heel, unstageable (principal); E11.42 Type 2 diabetes mellitus with diabetic polyneuropathy; I11.0 Hypertensive heart disease with heart failure; I50.20 Unspecified systolic (congestive) heart failure; J44.9 Chronic obstructive pulmonary disease, unspecified; E78.5 Hyperlipidemia, unspecified; I48.91 Unspecified atrial fibrillation; Z87.891 Personal history of nicotine dependence; Z79.899 Other long term (current) drug therapy
CPT/HCPCS: G0463

== ENCOUNTER → 2023-12-21 | Outpatient (CLI) | payer OTHER ==
[2023-12-21 13:55] LABS: ALBUMIN 3.7 g/dL (3.5-5.0); BILIRUBIN,TOTAL 0.6 mg/dL (0.2-1.0); CREATININE 1.7 mg/dL (0.5-1.5); MAGNESIUM 2.2 mg/dL (1.80-2.40); POTASSIUM 4.3 mmol/L (3.5-5.1); TOTAL PROTEIN, SERUM 7.3 g/dL (6.0-8.3)
== END | disposition home or self-care (01) ==
LOC: LAB 10:49
PROVIDERS: ATTEND Internal Medicine Cardiovascular Disease
DX: I50.32 Chronic diastolic (congestive) heart failure (principal); R60.9 Edema, unspecified
CPT/HCPCS: 36415; 80053; 83735; 83880

== ENCOUNTER 2024-06-26 11:45 | Inpatient (IN) | payer OTHER ==
[~2024-06-26] VITALS: Ht 180.3 cm; Wt 97.4 kg
[2024-06-26 12:33] LABS: BASOPHILS # (AUTO) 0.07 K/uL (0.00-0.20); BASOPHILS % (AUTO) 0.4 % (0.0-5.0); EOSINOPHILS # (AUTO) 0.29 K/uL (0.00-0.70); EOSINOPHILS % (AUTO) 1.8 % (0.0-8.0); HEMATOCRIT 49.5 % (42-54); IMMATURE GRANULOCYTE ABSOLUTE 0.09 K/uL (0-1); LYMPHOCYTES # (AUTO) 0.8 K/uL (1.0-4.8); LYMPHOCYTES % (AUTO) 4.9 % (21.0-51.0); MEAN CORPUSCULAR HEMOGLOBIN 31.1 pg (27.0-33.0); MEAN CORPUSCULAR HGB CONC 33.9 g/dL (32.0-36.0); MEAN CORPUSCULAR VOLUME 91.5 fL (79-99); MONOCYTES # (AUTO) 1.3 K/uL (0.1-1.0); MONOCYTES % (AUTO) 8.1 % (3.0-13.0); NEUTROPHILS # (AUTO) 13.5 K/uL (1.8-7.7); NEUTROPHILS % (AUTO) 84.2 % (40.0-77.0); PLATELET COUNT (AUTO) 208 K/uL (130-400); RED BLOOD CELL COUNT(AUTO) 5.41 MIL/uL (4.50-6.20); RED CELL DISTRIBUTION WIDTH 12.9 % (11.0-15.5)
[2024-06-26 12:37] LABS: SARS-CoV-2, RNA, NAAT NEGATIVE SARS CoV-2 (NEGATIVE)
[2024-06-26 12:40] LABS: INFLUENZA TYPE A Negative For Type A (NEGATIVE); INFLUENZA TYPE B Negative For Type B (NEGATIVE)
[2024-06-26 12:43] LABS: CREATININE 2.2 mg/dL (0.5-1.3); POTASSIUM 4.6 mmol/L (3.5-5.1)
[2024-06-26 12:49] LABS: ALBUMIN 3.3 g/dL (3.5-5.0); MAGNESIUM 2.1 mg/dL (1.80-2.40); TOTAL PROTEIN, SERUM 6.9 g/dL (6.0-8.3)
[2024-06-26 13:29] LABS: B-TYPE NATRIURETIC PEPTIDE 189 pg/mL (0-100)
[2024-06-26 14:20] LABS: APPEARANCE,URINE CLOUDY (CLEAR); BILIRUBIN,URINE NEGATIVE (NEGATIVE); COLOR,URINE YELLOW (YELLOW); GLUCOSE, URINE (UA) NEGATIVE (NEGATIVE); KETONES,URINE NEGATIVE (NEGATIVE); LEUKOCYTE ESTERASE ,URINE NEGATIVE Leu/uL (NEGATIVE); NITRATE,URINE NEGATIVE (NEGATIVE); PH,URINE 5.5 (5.0-8.0); PROTEIN,URINE 100 mg/dL (NEGATIVE); UROBILINOGEN,URINE 0.2 mg/dL (0.2-1.0)
[2024-06-26 14:22] LABS: ADD UA MICROSCOPIC YES
[2024-06-26 14:24] LABS: HYALINE CASTS, URINE 0-1 /LPF (0-1 /LPF); MUCUS,URINE RARE LPF (None Seen); SQUAMOUS EPITHELIAL CELL,UR RARE /HPF (0-2)
[2024-06-26] MEDS ORDERED: MEMA10TA21 PO (14:46)
[2024-06-26] MEDS ORDERED: LORA10TA7 PO (14:46)
[2024-06-26] MEDS ORDERED: RIVA2.5T PO (14:46)
[2024-06-26] MEDS ORDERED: FURO40TA5 PO (14:46)
[2024-06-26] MEDS ORDERED: TRAZ-185 PO (14:46)
[2024-06-26] MEDS ORDERED: METO-408 PO (14:46)
[2024-06-26] MEDS ORDERED: DONE10TA43 PO (14:46)
[2024-06-26] MEDS ORDERED: INSLAN SQ (14:47)
[2024-06-26] MEDS: ALBUTEROL 0.083% 2.5 MG/3 ML INH IH ONE (14:51)
[2024-06-26] MEDS: AZITHROMYCIN 500MG+NS 250ML 250 ML IVPB SCH (14:52)
[2024-06-26] MEDS: cefTRIAXone 1G VIAL IVPB ONE (14:52)
[2024-06-26 14:54] VITALS: PULSE 92; RESP 18
[2024-06-26] MEDS ORDERED: guaiFENesin SUGAR-FREE 100 MG/5 ML UDCUP PO PRN (16:00)
[2024-06-26] MEDS ORDERED: doCUSate SODIUM 100 MG CAP PO PRN (16:00)
[2024-06-26] MEDS ORDERED: ONDANSETRON 4MG INJ IV PRN (16:00)
[2024-06-26] MEDS ORDERED: POTASSIUM CHLORIDE 10% ELIXIR 20 MEQ/15 ML UDCUP PO PRN (16:00)
[2024-06-26] MEDS ORDERED: polyETHYLene GLYCol 3350 17 GM POWD.PACK PO PRN (16:00)
[2024-06-26] MEDS ORDERED: DiphenhydrAMINE HCL 50 MG/ML VIAL IV PRN (16:00)
[2024-06-26] MEDS ORDERED: NITROGLYCERIN 0.4 MG SL TAB SL PRN (16:00)
[2024-06-26] MEDS ORDERED: acetaMINOPHEN 325 MG TAB PO PRN (16:00)
[2024-06-26] MEDS ORDERED: DiphenhydrAMINE HCL 25 MG CAPSULE PO PRN (16:00)
[2024-06-26] MEDS ORDERED: LACTULOSE 20 GM/30 ML UDCUP PO PRN (16:00)
[2024-06-26] MEDS ORDERED: POTASSIUM CHLORIDE 20MEQ/100ML 100 ML IV PRN ×2 (16:00)
[2024-06-26] MEDS: INSULIN humuLIN R 100 UNIT/ML 3ML SQ SCH (16:37)
[2024-06-26 16:42] LABS: ABG BASE EXCESS -2.8 mmol/L (-2.0-3.0); ABG HCO3 21.8 mmol/L (21.0-28.0); ABG OXYGEN SATURATION 94.5 % (94.0-98.0); ABG PCO2 38 mmHg (35-48); ABG PH 7.379 (7.350-7.450); PO2, ARTERIAL BG 72.9 mmHg (83.0-108.0); VENT MODE, BG RA (ROOM AIR)
[2024-06-26] MEDS: RIVAROXABAN 2.5 MG TABLET PO SCH (18:51)
[2024-06-26 18:57] VITALS: PULSE 91; RESP 18; O2SAT 95
[2024-06-26] MEDS: IpraTROPium/alBUTERol SULFATE 3 ML SOLUTION IH SCH (18:57)
[2024-06-26] MEDS: SODIUM CHLORIDE 3% FOR INHALATION 4 ML/AMP VIAL.NEB IH ONE (19:23)
[2024-06-26] MEDS: FAMOTIDINE 20MG TAB PO SCH (20:29)
[2024-06-26] MEDS: INSULIN GLARgine 100 UNITS/ML 10 ML VIAL SQ SCH (20:31)
[2024-06-26 21:50] VITALS: BP 154/97; PULSE 68; RESP 20; TEMP 98.8
[2024-06-26 22:16] VITALS: O2SAT 98
[2024-06-26 23:30] VITALS: BP 127/70; PULSE 86; RESP 19; TEMP 98.4
[2024-06-27] VITALS (13 sets, daily range): BP systolic 110–170; BP diastolic 54–90; PULSE 76–102; RESP 17–20; TEMP 97.7–98.6; O2SAT 95–100
[2024-06-27 04:43] LABS: ALBUMIN 3.1 g/dL (3.5-5.0); BILIRUBIN,TOTAL 0.7 mg/dL (0.2-1.0); CREATININE 2.7 mg/dL (0.5-1.3); TOTAL PROTEIN, SERUM 6.5 g/dL (6.0-8.3)
[2024-06-27] MEDS: BUDESONIDE 0.5 MG/2 ML INH IH SCH (06:25)
[2024-06-27] MEDS: LORATAdine 10 mg 10 MG TABLET PO SCH (08:18)
[2024-06-27] MEDS: MEMANtine HCL 5 MG TABLET PO SCH (08:18)
[2024-06-27] MEDS: metOPROLol sucCINATE 25 MG TAB.SR.24H PO SCH (08:18)
[2024-06-27] MEDS: CLOPIDOGREL 75MG TAB PO SCH (08:18)
[2024-06-27] MEDS: CEFTRIAXONE 2GM VIAL IVPB SCH (08:20)
[2024-06-27] MEDS ORDERED: NON-FORMULARY MEDICATION 1 EACH (Memantine HCl 10 MG) PO SCH (09:00)
[2024-06-27] MEDS: AZITHROMYCIN 500MG+NS 250ML 250 ML IV SCH (09:44)
[2024-06-27] MEDS: SODIUM CHLORIDE 3% FOR INHALATION 4 ML/AMP VIAL.NEB IH ONE (10:39)
[2024-06-27] MEDS ORDERED: PHARMACY COMMUNICATION MISC SCH (17:00)
[2024-06-27] MEDS ORDERED: trAZOdone HCL 50 MG TAB PO PRN (17:30)
[2024-06-27] MEDS: furoSEMIDE 40MG VIAL IV SCH (17:54)
[2024-06-27] MEDS: doNEPEZil HCL 5 MG TAB PO SCH (19:55)
[2024-06-27] MEDS: PHARMACY COMMUNICATION MISC SCH (20:01)
[2024-06-27] MEDS ORDERED: BUDESONIDE 0.5 MG/2 ML INH IH SCH (21:00)
[2024-06-27] MEDS: acetaMINOPHEN 325 MG TAB PO PRN (21:43)
[2024-06-27] MEDS: hydrALAZine 25MG TABLET PO PRN (23:29)
[2024-06-28] VITALS (11 sets, daily range): BP systolic 100–175; BP diastolic 45–95; PULSE 72–86; RESP 17–18; TEMP 97.2–98.1; O2SAT 96–97
[2024-06-28 05:11] LABS: ALBUMIN 3.1 g/dL (3.5-5.0); BASOPHILS # (AUTO) 0.05 K/uL (0.00-0.20); BASOPHILS % (AUTO) 0.5 % (0.0-5.0); BILIRUBIN,TOTAL 0.6 mg/dL (0.2-1.0); CREATININE 1.9 mg/dL (0.5-1.3); EOSINOPHILS # (AUTO) 0.56 K/uL (0.00-0.70); EOSINOPHILS % (AUTO) 5.5 % (0.0-8.0); HEMATOCRIT 45.7 % (42-54); IMMATURE GRANULOCYTE ABSOLUTE 0.06 K/uL (0-1); LYMPHOCYTES # (AUTO) 1.5 K/uL (1.0-4.8); MEAN CORPUSCULAR HEMOGLOBIN 31.6 pg (27.0-33.0); MEAN CORPUSCULAR HGB CONC 34.1 g/dL (32.0-36.0); MEAN CORPUSCULAR VOLUME 92.7 fL (79-99); MONOCYTES # (AUTO) 1.1 K/uL (0.1-1.0); MONOCYTES % (AUTO) 10.8 % (3.0-13.0); NEUTROPHILS # (AUTO) 6.8 K/uL (1.8-7.7); NEUTROPHILS % (AUTO) 67.6 % (40.0-77.0); PLATELET COUNT (AUTO) 153 K/uL (130-400); POTASSIUM 3.7 mmol/L (3.5-5.1); RED BLOOD CELL COUNT(AUTO) 4.93 MIL/uL (4.50-6.20); RED CELL DISTRIBUTION WIDTH 12.9 % (11.0-15.5); TOTAL PROTEIN, SERUM 6.5 g/dL (6.0-8.3); WHITE BLOOD COUNT (AUTO) 10.1 K/uL (4.8-10.8)
[2024-06-28 06:03] LABS: B-TYPE NATRIURETIC PEPTIDE 323 pg/mL (0-100)
[2024-06-28] MEDS: KCL 20 MEQ ERTAB PO PRN (06:08)
[2024-06-28] MEDS: miDODRine HCL 5 MG TABLET PO SCH (10:17)
[2024-06-29] VITALS (13 sets, daily range): BP systolic 109–159; BP diastolic 60–78; PULSE 67–100; RESP 17–20; TEMP 97.6–98.9; O2SAT 96–98
[2024-06-29] MEDS: simVASTatin 20 MG TABLET PO SCH (09:52)
[2024-06-29 11:35] LABS: CREATININE 1.8 mg/dL (0.5-1.3)
[2024-06-30] VITALS (12 sets, daily range): BP systolic 123–151; BP diastolic 69–78; PULSE 68–102; RESP 18–20; TEMP 97.4–98.8; O2SAT 93–97
[2024-06-30 05:14] LABS: BASOPHILS # (AUTO) 0.06 K/uL (0.00-0.20); BASOPHILS % (AUTO) 0.6 % (0.0-5.0); EOSINOPHILS # (AUTO) 0.65 K/uL (0.00-0.70); EOSINOPHILS % (AUTO) 6.5 % (0.0-8.0); HEMATOCRIT 45.4 % (42-54); IMMATURE GRANULOCYTE ABSOLUTE 0.07 K/uL (0-1); LYMPHOCYTES # (AUTO) 1.3 K/uL (1.0-4.8); LYMPHOCYTES % (AUTO) 13.1 % (21.0-51.0); MEAN CORPUSCULAR HEMOGLOBIN 31.8 pg (27.0-33.0); MEAN CORPUSCULAR HGB CONC 33.9 g/dL (32.0-36.0); MEAN CORPUSCULAR VOLUME 93.6 fL (79-99); MONOCYTES % (AUTO) 10.4 % (3.0-13.0); NEUTROPHILS # (AUTO) 6.9 K/uL (1.8-7.7); NEUTROPHILS % (AUTO) 68.7 % (40.0-77.0); PLATELET COUNT (AUTO) 168 K/uL (130-400); RED BLOOD CELL COUNT(AUTO) 4.85 MIL/uL (4.50-6.20)
[2024-06-30 05:50] LABS: BILIRUBIN,TOTAL 0.5 mg/dL (0.2-1.0); CREATININE 2.2 mg/dL (0.5-1.3); MAGNESIUM 1.7 mg/dL (1.80-2.40); POTASSIUM 4.2 mmol/L (3.5-5.1); TOTAL PROTEIN, SERUM 6.5 g/dL (6.0-8.3)
[2024-06-30 05:53] LABS: B-TYPE NATRIURETIC PEPTIDE 78 pg/mL (0-100)
[2024-06-30] MEDS: MAGNESIUM 2GM PREMIX 50ML 50 ML IV PRN (06:32)
[2024-06-30] MEDS: furoSEMIDE 40 MG TABLET PO SCH (15:01)
[2024-07-01] VITALS (7 sets, daily range): BP systolic 131–146; BP diastolic 56–79; PULSE 74–94; RESP 18–20; TEMP 97.9–98.7; O2SAT 98
== END 2024-07-01 14:15 | DRG 871 ==
LOC: EDH 11:45 → EDHIP 15:47 → 4CH 21:43
PROVIDERS: ADMIT Internal Medicine Critical Care Medicine; ATTEND Internal Medicine Critical Care Medicine
DX: A41.9 Sepsis, unspecified organism (principal); I50.41 Acute combined systolic (congestive) and diastolic (congestive) heart failure; J15.8 Pneumonia due to other specified bacteria; J44.0 Chronic obstructive pulmonary disease with (acute) lower respiratory infection; N17.9 Acute kidney failure, unspecified; I13.0 Hypertensive heart and chronic kidney disease with heart failure and stage 1 through stage 4 chronic kidney disease, or unspecified chronic kidney disease; N18.4 Chronic kidney disease, stage 4 (severe); E11.65 Type 2 diabetes mellitus with hyperglycemia; E03.9 Hypothyroidism, unspecified; E11.22 Type 2 diabetes mellitus with diabetic chronic kidney disease; E11.51 Type 2 diabetes mellitus with diabetic peripheral angiopathy without gangrene; E78.5 Hyperlipidemia, unspecified; E88.09 Other disorders of plasma-protein metabolism, not elsewhere classified; Z20.822 Contact with and (suspected) exposure to COVID-19; F03.90 Unspecified dementia, unspecified severity, without behavioral disturbance, psychotic disturbance, mood disturbance, and anxiety; I25.10 Atherosclerotic heart disease of native coronary artery without angina pectoris; I25.5 Ischemic cardiomyopathy; Z79.4 Long term (current) use of insulin; Z82.49 Family history of ischemic heart disease and other diseases of the circulatory system; Z83.3 Family history of diabetes mellitus; Z87.891 Personal history of nicotine dependence; Z95.1 Presence of aortocoronary bypass graft; Z79.899 Other long term (current) drug therapy; Z95.810 Presence of automatic (implantable) cardiac defibrillator
CPT/HCPCS: 36415; 36600; 71045; 76770; 80048; 80053; 81001; 82803; 82948; 83605; 83735; 83880; 84145; 84484; 85025; 87040; 87071; 87205; 87635; 87641; 87804; 87880; 92610; 93005; 94640; 94664; G0378; J0456; J0696; J1815; J1940; J3475

== ENCOUNTER → 2024-08-11 | Outpatient (CLI) | payer OTHER ==
[~2024-08-11] MED LIST changes: -AEC81 PO; -CHOL2000 PO; +DONE10TA43 PO; -FURO20TA4 PO; +FURO40TA5 PO; -GUAI600T50 PO; +INSLAN SQ; +IOHEXOL 350 MG/ML 100ML INFUS..BTL IV ONE; +IOHEXOL-350 75 ML VIAL IV ONE; +LORA10TA7 PO; +MEMA10TA21 PO; +METO-408 PO; +RIVA2.5T PO; +TRAZ-185 PO
== END | disposition home or self-care (01) ==
LOC: RAH 08:05
PROVIDERS: ATTEND Internal Medicine
DX: K80.20 Calculus of gallbladder without cholecystitis without obstruction (principal); R74.8 Abnormal levels of other serum enzymes; R91.1 Solitary pulmonary nodule; J84.10 Pulmonary fibrosis, unspecified; I25.10 Atherosclerotic heart disease of native coronary artery without angina pectoris; M47.815 Spondylosis without myelopathy or radiculopathy, thoracolumbar region
CPT/HCPCS: 71270; 76700; Q9967

== ENCOUNTER → 2024-08-30 | Outpatient (CLI) | payer OTHER ==
[~2024-08-30] MED LIST changes: -IOHEXOL 350 MG/ML 100ML INFUS..BTL IV ONE; -IOHEXOL-350 75 ML VIAL IV ONE
== END | disposition home or self-care (01) ==
LOC: SHCH 15:08
PROVIDERS: ATTEND Internal Medicine Cardiovascular Disease
DX: I25.5 Ischemic cardiomyopathy (principal)
CPT/HCPCS: 93306

== ENCOUNTER 2025-02-14 12:36 | Emergency (ER) | payer OTHER ==
[~2025-02-14] VITALS: Ht 180.3 cm; Wt 104.3 kg
[~2025-02-14 12:36] MED LIST changes: +DRON400T7 PO; +EMPA25TA PO; +INSU100I15 SQ; -LORA10TA7 PO
[2025-02-14 13:17] LABS: BASOPHILS # (AUTO) 0.06 K/uL (0.00-0.20); BASOPHILS % (AUTO) 0.6 % (0.0-5.0); EOSINOPHILS # (AUTO) 0.38 K/uL (0.00-0.70); EOSINOPHILS % (AUTO) 3.6 % (0.0-8.0); HEMATOCRIT 50.9 % (42-54); IMMATURE GRANULOCYTE ABSOLUTE 0.08 K/uL (0-1); LYMPHOCYTES % (AUTO) 9.5 % (21.0-51.0); MEAN CORPUSCULAR HEMOGLOBIN 31.2 pg (27.0-33.0); MEAN CORPUSCULAR HGB CONC 33.4 g/dL (32.0-36.0); MEAN CORPUSCULAR VOLUME 93.4 fL (79-99); MONOCYTES # (AUTO) 0.9 K/uL (0.1-1.0); MONOCYTES % (AUTO) 8.3 % (3.0-13.0); NEUTROPHILS # (AUTO) 8.2 K/uL (1.8-7.7); NEUTROPHILS % (AUTO) 77.2 % (40.0-77.0); PLATELET COUNT (AUTO) 187 K/uL (130-400); RED BLOOD CELL COUNT(AUTO) 5.45 MIL/uL (4.50-6.20); WHITE BLOOD COUNT (AUTO) 10.6 K/uL (4.8-10.8)
[2025-02-14 13:30] LABS: CREATININE 1.8 mg/dL (0.5-1.3); MAGNESIUM 2.1 mg/dL (1.80-2.40)
--- NOTE | 2025-02-14 13:31 | EKG ---
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
--- NOTE | 2025-02-14 14:28 | HMCIMG ---
PORTABLE CHEST RADIOGRAPH INDICATION: WEAKNESS COMPARISON: 09/25/2024 FINDINGS: cardiac monitor technician leads overlie the field of view. Left sided dual chamber pacer and continuous leads remain in customary position. Heart size is normal. The pulmonary vascularity and estuardo appear normal. No abnormal pulmonary parenchymal opacity or consolidation identified. No significant pleural effusion noted. No pneumothorax detected. IMPRESSION: No radiographic evidence for any acute cardiopulmonary process.
[2025-02-14 14:36] LABS: APPEARANCE,URINE CLOUDY (CLEAR); BILIRUBIN,URINE NEGATIVE (NEGATIVE); COLOR,URINE YELLOW (YELLOW); GLUCOSE, URINE (UA) NEGATIVE (NEGATIVE); KETONES,URINE NEGATIVE (NEGATIVE); LEUKOCYTE ESTERASE ,URINE 500 Leu/uL (NEGATIVE); NITRATE,URINE NEGATIVE (NEGATIVE); OCCULT BLOOD,URINE SMALL (NEGATIVE); PH,URINE 5.5 (5.0-8.0); PROTEIN,URINE 50 mg/dL (NEGATIVE)
[2025-02-14 14:44] LABS: ADD UA MICROSCOPIC YES
[2025-02-14 14:58] LABS: BACTERIA,URINE MANY /HPF (None Seen); MUCUS,URINE RARE LPF (None Seen); SQUAMOUS EPITHELIAL CELL,UR RARE /HPF (0-2); WBC CLUMP FEW /HPF (0-1); WBC,URINE TNTC /HPF (0-1)
[2025-02-14 15:28] VITALS: BP 135/69; PULSE 95; RESP 18; TEMP 97.9; O2SAT 96
[2025-02-14] MEDS: cefTRIAXone 1G VIAL IVPB ONE (15:57)
[2025-02-14] MEDS ORDERED: SULF1TAB42 PO (16:01)
--- NOTE | 2025-02-14 16:02 | ERN ---
General Chief Complaint: Weakness Stated Complaint: WEAKNESS Time Seen by MD: 12:47 Time Seen by Midlevel: 12:47 Source: patient History of Present Illness Initial Comments The patient is a 79-year-old male with a past medical history of atrial fibrillation, dementia, and type 2 diabetes presenting to the emergency department for evaluation of generalized body weakness that has been ongoing for two days. No other symptoms reported. Patients specifically denies any chest pain, shortness of breath, or any other symptoms Allergies: Coded Allergies: No Known Drug Allergies (Unverified Allergy, Unknown, 10/20/16) Home Meds Active Scripts Dronedarone Hydrochloride (Multaq) 400 Mg Tablet, 400 MG PO BID, #30 TAB Prov:JORY ANDERSEN CNP 09/28/24 Dronedarone Hydrochloride (Multaq) 400 Mg Tablet, 400 MG PO BID, #60 TAB 3 Refills Prov:ANABEL CHAIREZ MD 09/26/24 Reported Medications Insulin Lispro (Humalog) 100 Unit/Ml Insuln.pen, 10 UNITS SQ TID, SYRINGE 09/26/24 Insulin Glargine,Hum.rec.anlog (Lantus) 100 Unit/Ml Inj, 20 UNITS SQ HS, ML 09/26/24 Midodrine HCl (Midodrine HCl) 5 Mg Tablet, 5 MG PO BID for hypotension, TAB take as needed if systolic blood pressure is 110 or less 09/26/24 Empagliflozin (Jardiance) 25 Mg Tablet, 25 MG PO DAILY, TAB 09/26/24 Metoprolol Succinate (Metoprolol Succinate) 25 Mg Tab.er.24h, 25 MG PO DAILY, TAB 06/26/24 Trazodone HCl (Trazodone HCl) 50 Mg Tablet, 50 MG PO HSPRN PRN for INSOMNIA, TAB 06/26/24 Rivaroxaban (Xarelto) 2.5 Mg Tablet, 2.5 MG PO BIDMEALS, TAB 06/26/24 Donepezil HCl (Donepezil HCl) 10 Mg Tablet, 10 MG PO HS, TAB 06/26/24 Memantine HCl (Memantine HCl) 10 Mg Tablet, 10 MG PO DAILY, TAB 06/26/24 Furosemide (Furosemide) 40 Mg Tablet, 40 MG PO DAILY, TAB 06/26/24 Clopidogrel Bisulfate (Clopidogrel) 75 Mg Tablet, 75 MG PO DAILY, TAB 01/22/23 Simvastatin (Simvastatin) 20 Mg Tablet, 20 MG PO QODAY, TAB 10/02/19 Past Medical History Past Medical History: CAD, CHF, Diabetes-Type II Medical History Other: MITRAL VALVE PROLAPSE, PULMONARY FIBROSIS Past Surgical History: CABG Surgical History Other: HEART STENTS, HIP Family History Family History: DM, HTN Social History Social History: Negative ROS Dictation CONSTITUTIONAL: Negative except for HPI HEAD/FACE: Negative except for HPI EENT: Negative except for HPI RESPIRATORY: Negative except for HPI GASTROINTESTINAL/ABDOMINAL: Negative except for HPI GENITOURINARY: Negative except for HPI MUSCULOSKELETAL: Negative except for HPI INTEGUMENTARY: Negative except for HPI NEUROLOGICAL/PSYCH: Negative except for HPI HEMATOLOGIC/LYMPHATIC: Negative except for HPI All Systems Negative, Except as noted above. 13 point review of systems assessed and all negative except for above. Physical Exam Physical Exam Dictation Vital Signs reviewed General Appearance: Alert, oriented x 3, no acute distress, well developed, nourished. Head and Face: non-traumatic. Eyes: PERRL, pink conjunctivas, eyelid no trauma, anterior chamber with arcus senilis. Ears: Pinnas intact and no signs of trauma or erythema ear canals clear and no discharge TM no erythema Nose: No discharge, no bleeding. Oropharynx: Mouth normal, tongue pink, pharynx clear,no erythema, tonsils no exudates, no abscesses noted, mucous membrane moist Neck: Supple, non-tender, no thyromegaly, no masses, no JVD, no bruits Breast:Deferred Chest:No tenderness, no crepitus, no paradoxical movement, no retractions Lungs:Clear, well-ventilated, symmetric, no rales, no wheezing, no rhonchi, no stridor, good breath sounds bilaterally Heart: Regular rate, regular rhythm, no murmur, no gallops Vascular: no peripheral edema, Abdomen: Soft, positive bowel sounds, nondistended, no guarding, nontender, no rebound, no masses no hepatomegaly, no splenomegaly, no Narayanan's sign, no hernias. Rectal: Deferred Genital: Deferred Neurological: Normal speech, motor function intact, sensory function intact Musculoskeletal: Neck nontender, full range of motion, back nontender, full range of motion, Extremities: nontender, full range of motion Skin: Color pink, dry, no turgor, no rash, no lacerations, no abrasions, no contusions. Lymphatic: Deferred Results Laboratory and Microbiology Lab and Micro Result Laboratory Tests Test 02/14/25 13:08 02/14/25 14:00 White Blood Count 10.6 K/uL (4.8-10.8) Red Blood Count 5.45 MIL/uL (4.50-6.20) Hemoglobin 17.0 g/dL (14.0-18.0) Hematocrit 50.9 % (42-54) Mean Corpuscular Volume 93.4 fL (79-99) Mean Corpuscular Hemoglobin 31.2 pg (27.0-33.0) Mean Corpuscular Hemoglobin Concent 33.4 g/dL (32.0-36.0) Red Cell Distribution Width 14.0 % (11.0-15.5) Platelet Count 187 K/uL (130-400) Mean Platelet Volume 9.8 fL (7.5-10.5) Immature Granulocyte % (Auto) 0.8 % (0-1) Neutrophils (%) (Auto) 77.2 % (40.0-77.0) H Lymphocytes (%) (Auto) 9.5 % (21.0-51.0) L Monocytes (%) (Auto) 8.3 % (3.0-13.0) Eosinophils (%) (Auto) 3.6 % (0.0-8.0) Basophils (%) (Auto) 0.6 % (0.0-5.0) Neutrophils # (Auto) 8.2 K/uL (1.8-7.7) H Lymphocytes # (Auto) 1.0 K/uL (1.0-4.8) Monocytes # (Auto) 0.9 K/uL (0.1-1.0) Eosinophils # (Auto) 0.38 K/uL (0.00-0.70) Basophils # (Auto) 0.06 K/uL (0.00-0.20) Absolute Immature Granulocyte (auto 0.08 K/uL (0-1) Nucleated Red Blood Cells 0.0 % (0.0-0.19) White Cell Morphology Comment See comments Sodium Level 145 mmol/L (136-145) Potassium Level 5.0 mmol/L (3.5-5.1) Chloride Level 106 mmol/L (101-111) Carbon Dioxide Level 32 mmol/L (21-32) Blood Urea Nitrogen 28 mg/dL (7-18) H Creatinine 1.8 mg/dL (0.5-1.3) H Glomerular Filtration Rate Calc 38 mL/min (>90) Random Glucose 148 mg/dL (70-105) H Total Calcium 9.2 mg/dL (8.5-10.1) Magnesium Level 2.10 mg/dL (1.80-2.40) Total Creatine Kinase 36 U/L (21-232) # Troponin I High Sensitivity 9 ng/L (4-75) B-Type Natriuretic Peptide 183 pg/mL (0-100) H Urine Color YELLOW (YELLOW) Urine Appearance CLOUDY (CLEAR) H Urine pH 5.5 (5.0-8.0) Urine Specific Adrian 1.018 (1.001-1.031) Urine Protein 50 mg/dL (NEGATIVE) H Urine Glucose (UA) NEGATIVE mg/dL (NEGATIVE) Urine Ketones NEGATIVE mg/dL (NEGATIVE) Urine Occult Blood SMALL (NEGATIVE) H Urine Nitrate NEGATIVE (NEGATIVE) Urine Bilirubin NEGATIVE mg/dL (NEGATIVE) Urine Urobilinogen 2.0 mg/dL (0.2-1.0) H Urine Leukocyte Esterase 500 David/uL (NEGATIVE) H Urine RBC 2-5 /HPF (0-1) H Urine WBC TNTC /HPF (0-1) H Urine WBC Clumps (Auto) FEW /HPF (0-1) Urine Squamous Epithelial Cells RARE /HPF (0-2) Urine Bacteria MANY /HPF (None Seen) Labs Reviewed?: Yes MDM MDM: Differential diagnosis: Urinary tract infection, dehydration, electrolyte abnormality There are no social concerns with this patient. Prescription drug management Prescriptions will include: Levaquin Medical management and examination interpretation discussions were had by me with other qualified healthcare professionals as indicated for the patient's care. ED Course Orders Procedure Category Date Status Time Cbc With Differential LAB 02/14/25 Complete 12:42 Troponin I High LAB 02/14/25 Complete Sensitivity 12:42 12 Lead Ekg Tracing- EKG 02/14/25 Complete Technical 12:42 Chest 1vw RAD 02/14/25 Resulted 12:42 Urinalysis Profile LAB 02/14/25 Complete 12:42 Magnesium LAB 02/14/25 Complete 12:48 B-Type Natriuretic LAB 02/14/25 Complete Peptide 12:48 Creatine Kinase, Total LAB 02/14/25 Complete 12:48 Basic Metabolic Panel LAB 02/14/25 Complete 13:08 Culture Urine REJI 02/14/25 Logged 14:44 Ceftriaxone 1g Vial PHA 02/14/25 Logged (Rocephine 1g Inj) 16:00 Vital Signs Date Time Temp Pulse Resp B/P (MAP) Pulse Ox O2 Delivery O2 Flow Rate FiO2 02/14/25 15:28 97.9 95 18 135/69 96 Room Air* 0 21 02/14/25 13:54 98.1 88 18 116/93 98 Room Air* 0 21 02/14/25 13:06 97.5 86 20 126/65 98 Room Air* 0 21 02/14/25 12:37 70 17 109/73 96 Room Air 0 [place] [address] [place] [id number] IMAGING REPORT Signed PATIENT: LEONARD SHEPPARD MR#: [id number] : 1945 SEX: M AGE: 79 LOCATION: [facility] ORDER 41 STATUS: REG ER REPORT#: [id number] SERVICE 41 REASON: WEAKNESS ORDERING PHYSICIAN: BIN SMITH MD PROCEDURE: CXR1VW - CHEST 1VW PORTABLE CHEST RADIOGRAPH INDICATION: WEAKNESS COMPARISON: 09/25/2024 FINDINGS: casino shift manager leads overlie the field of view. Left sided dual chamber pacer and continuous leads remain in customary position. Heart size is normal. The pulmonary vascularity and estuardo appear normal. No abnormal pulmonary parenchymal opacity or consolidation identified. No significant pleural effusion noted. No pneumothorax detected. IMPRESSION: No radiographic evidence for any acute cardiopulmonary process. DICTATED BY: GARCÍA LARSEN MD DATE: 02/14/251424 ELECTRONICALLY SIGNED BY: GARCÍA LARSEN MD DATE: 02/14/251427 DX & DISP Disposition: Discharge Departure Impression: Primary Impression: Urinary tract infection Additional Impression: CKD (chronic kidney disease) Condition: Stable Scripts Sulfamethoxazole/Trimethoprim (Bactrim Ds Tablet) 800 Mg-160 Mg Tablet 1 TAB PO BID for 7 Days, #14 TAB 0 Refills Prov: MARCIA IZQUIERDO 02/14/25 Referrals: BENEDICT VERDUZCO MD (PCP) Time of Disposition: 15:57 I have reviewed the case, and I agree with, Diagnosis and Plan I performed the substantive portion of the visit. I have reviewed and personally made and approve the management plan that is documented in the note by myself or the NICKIE. I acknowledge for responsibility for the patient's management plan. MARCIA IZQUIERDO Feb 14, 2025 16:02
== END 2025-02-14 16:06 | disposition home or self-care (01) ==
LOC: EDH 12:36
DX: I13.0 Hypertensive heart and chronic kidney disease with heart failure and stage 1 through stage 4 chronic kidney disease, or unspecified chronic kidney disease (principal); E11.22 Type 2 diabetes mellitus with diabetic chronic kidney disease; N18.9 Chronic kidney disease, unspecified; I50.9 Heart failure, unspecified; N39.0 Urinary tract infection, site not specified; I25.10 Atherosclerotic heart disease of native coronary artery without angina pectoris; Z79.02 Long term (current) use of antithrombotics/antiplatelets; Z79.4 Long term (current) use of insulin; Z79.84 Long term (current) use of oral hypoglycemic drugs; Z79.899 Other long term (current) drug therapy; Z95.1 Presence of aortocoronary bypass graft; Z95.5 Presence of coronary angioplasty implant and graft
CPT/HCPCS: 99285; 96365; 71045; 82550; 83735; 84484; 80048; 83880; 85025; 87086 ×2; 87186; 81001; 36415; 93005; J0696

== ENCOUNTER → 2025-02-21 | Outpatient (CLI) | payer OTHER ==
[~2025-02-21] MED LIST changes: +SULF1TAB42 PO
[2025-02-21 16:56] LABS: CREATININE 1.9 mg/dL (0.5-1.3); POTASSIUM 5.2 mmol/L (3.5-5.1)
== END | disposition home or self-care (01) ==
LOC: LAB 15:56
PROVIDERS: ATTEND Nurse Practitioner Acute Care
DX: I13.0 Hypertensive heart and chronic kidney disease with heart failure and stage 1 through stage 4 chronic kidney disease, or unspecified chronic kidney disease (principal); I50.42 Chronic combined systolic (congestive) and diastolic (congestive) heart failure; N18.9 Chronic kidney disease, unspecified; I25.5 Ischemic cardiomyopathy
CPT/HCPCS: 36415; 80048; 83880